=== PATIENT | male | born 1965 | race Caucasian/White ===

== ENCOUNTER 2023-05-04 09:17 | Emergency (ER) | payer BC, SELFPAY ==
[2023-05-04] VITALS (18 sets, daily range): BP systolic 101–115; BP diastolic 61–80; PULSE 52–62; RESP 16–20; TEMP 36.3–36.8; O2SAT 95–100
--- NOTE | ~2023-05-04 | CT_ITS ---
Non-contrast Head CT History: Status post fall Technique: Axial non-contrast imaging of the brain was performed. Dose reduction technique was used on this scan by utilizing automated exposure control and iterative reconstruction technique. The dose -length product (DLP) was 605.33 mGy-cm. Findings: There is no evidence of intracranial hemorrhage, mass lesion, or acute infarct. Brain par enchyma appears normal. The ventricles and subarachnoid spaces are normal in size. The calvarium ap pears normal. The visualized paranasal sinuses and mastoid air cells are clear. Impression: No significant abnormality seen. Reviewed, dictated and finalized at location . Impression: No significant abnormality seen.
--- NOTE | ~2023-05-04 | US_ITS ---
Testicular ultrasound with doppler. Indication: Left testicular pain. Technique: Real-time sonography the scrotum was performed. Color flow Doppler and Doppler spectral an alysis were performed. Findings: The testes are homogeneous in echotexture bilaterally. There is no evidence of an intrates ticular mass. There is ectasia of the right rete testis. The right testis measures 4.9 x 2.5 x 3.5 cm and the left 4.5 x 2.3 x 2.8 cm. There is color-flow seen to both testes. Arterial and venous spectr al waveforms are seen in both testes. There is no sonographic evidence of torsion. The head of the e pididymis is visualized bilaterally and is within normal limits. Impression: No significant abnormality seen. Reviewed, dictated and finalized at [facility]. Impression: No significant abnormality seen.
--- NOTE | ~2023-05-04 | CT_ITS ---
EXAMINATION: CT abdomen pelvis w con DATE: 05/04/2023 12:36 INDICATION: Inguinal hernia with pain TECHNIQUE: Computed tomography (CT) of the abdomen and pelvis was performed with 100 mL Omnipaque-350 intravenous contrast. The mA was adjusted according to patient size. Iterative reconstruction techni que was employed. The dose-length product was 522.95 mGy-cm. COMPARISON: None FINDINGS: Mild dependent atelectasis in the bilateral lower lobes. Heart size normal. No pericardial or pleural effusion. Small sliding-type hiatal hernia. A couple hyperenhancing subcapsular hepatic lesions elaine uring 1.3 cm in the left hepatic lobe and 0.8 cm in the right hepatic lobe most likely representing f lash filling hemangiomas. Gallbladder, spleen, pancreas, bilateral adrenal glands and left kidney are normal. 2 mm nonobstructing stone in the interpolar region of the right kidney. There is mild coloni c diverticulosis with a sigmoid predominance. There is no adjacent inflammatory change to suggest di verticulitis. No bowel obstruction. Normal appendix. Small fat-containing right inguinal hernia. Like ly left inguinal hernia repair and possible prior right inguinal hernia repair. No free intraperitone al gas or fluid. No pathologically enlarged abdominal or pelvic lymphadenopathy. Mild lumbar spondylo sis and mild to moderate bilateral hip osteoarthritis. IMPRESSION: 1. Small right inguinal hernia with likely prior bilateral inguinal hernia repairs. Reviewed, dictated and finalized at location [facility]. IMPRESSION: 1. Small right inguinal hernia with likely prior bilateral inguinal hernia repa irs.
--- NOTE | 2023-05-04 11:47 | PC.NURSE ---
testicular exam performed by provider with verse writer assistance
--- NOTE | 2023-05-04 11:53 | ED.ABDPAIN ---
HPI - Abdominal Pain General Chief Complaint: Abdominal Pain Stated Complaint: hernia Time Seen by Provider: 05/04/23 11:13 History of Present Illness HPI narrative: 57-year-old male reports from [facility] for evaluation of right groin pain and swelling since yesterday. Patient states he was urinating when he experienced a severely sharp pain in his right lower groin which caused him to fall to the ground. He denies losing consciousness but states he did hit his head. Patient states the pain was very sharp in nature and radiated down the anterior aspect of his right thigh. He has since had a dull ache in the R groin, states if he lays flat the bulge goes down, but if he stands up for 5-10 minutes, the bulge returns and causes pain. He has a history of 3 left inguinal hernias, he is s/p repair by Dr. Shelley at [facility]. He has no history of hernias on the R side but states this is how he presented with his left hernias. He also reports L testicular pain and intermittent swelling in his scrotum, along with intermittent burning when he pees. When asked if it feels like he pees knives, he says no. He does endorse intermittent nausea, vomiting and diarrhea. Denies fever, CP, SOB, back pain, neck pain, focal weakness, difficulty ambulating, penile discharge, concern for STD. No other injuries acquired during the fall. Related Data Allergies Allergy/AdvReac Type Severity Reaction Status Date / Time No Known Allergies Allergy Verified 05/04/23 12:02 Review of Systems Review of Systems: CONSTITUTIONAL: Denies fever, chills EYES: Denies visual changes, redness, or discharge. ENT: Denies rhinorrhea, congestion, sore throat, or otalgia. CARDIOVASCULAR: Denies chest pain, palpitations, or edema. RESPIRATORY: Denies cough or dyspnea. GASTROINTESTINAL: See HPI GENITOURINARY: See HPI SKIN: Denies rash or itching. MUSCULOSKELETAL: Denies back pain, joint pain, or myalgia. NEUROLOGIC: Denies headache, numbness, dizziness, or weakness. PSYCHIATRIC: Denies anxiety or depression. Exam Narrative: GENERAL: Well-appearing, in no acute distress. HEAD: Normocephalic EYES: PERRLA ENT: Nares clear. Mucous membranes moist. Oropharynx without tonsillar hypertrophy exudate or other lesions. NECK: Supple. CHEST: No respiratory distress. Clear to auscultation, no adventitious breath sounds. HEART: Regular rate and rhythm. No murmur heard. Normal peripheral pulses. ABDOMEN: Normal active bowel sounds. Tenderness to the R groin, no hernia appreciated. No overlying skin changes. No guarding or rigidity. L testicular tenderness, no spontaneous hernia palpated in scrotum. No tenderness or crepitus to the perineum. L indirect hernia palpated in the inguinal ring through the scrotum with coughing, no R indirect hernia appreciated. No CVA tenderness. EXTREMITIES: Normal range of motion. No edema. SKIN: Warm, dry, no rash. NEURO: No focal deficits. Alert and oriented x3. Cranial nerves II through XII intact. Strength 5/5 in BUE and BLE. Sensation intact throughout. Ambulatory without difficulty. PSYCH: Normal mood and affect. Course Vital Signs Vital signs: Vital Signs Temperature 97.3 F L 05/04/23 09:20 Pulse Rate 62 05/04/23 09:20 Respiratory Rate 20 05/04/23 09:20 Blood Pressure 114/79 05/04/23 09:20 Pulse Oximetry 100 05/04/23 09:20 Oxygen Delivery Room Air 05/04/23 09:20 Temperature 98.3 F 05/04/23 10:15 Pulse Rate 52 L 05/04/23 14:02 Respiratory Rate 16 05/04/23 14:02 Blood Pressure 104/68 05/04/23 14:02 Pulse Oximetry 97 05/04/23 14:02 Oxygen Delivery Room Air 05/04/23 09:20 MDM - Abdominal Pain MDM Narrative Medical decision making narrative: 57-year-old male reports from [facility] for evaluation of right groin pain and swelling since yesterday, concerning for strangulated or incarcerated hernia, and dysuria x1 week. Vital stable, he is afebrile. On exam, there is tenderness to the right inguina
[2023-05-04 12:04] LABS: Basophils Absolute Auto 0.1 K/mm3 (0.0-0.1); Basophils Percent Auto 0.8 % (0.2-1.2); Eosinophils Absolute Auto 0.2 K/mm3 (0-0.3); Eosinophils Percent Auto 3.7 % (0-4.4); Hematocrit 48.4 % (42.0-52.0); Hemoglobin 16.5 g/dL (14.0-18.0); Immature Granulocyte Absolute 0.02 K/mm3 (0.00-0.031); Immature Granulocyte Percent A 0.3 % (0-0.5); Lymphocytes Absolute Auto 1.69 K/mm3 (0.9-3.2); Lymphocytes Percent Auto 26.9 % (18.3-44.2); Mean Corpuscular HGB Conc 34.1 g/dl (32-36); Mean Corpuscular Volume 90.8 fl (80-100); Mean Platelet Volume 8.9 fl (7.4-10.4); Monocytes Absolute Auto 0.6 K/mm3 (0.1-0.6); Monocytes Percent Auto 9.2 % (2.6-8.5); Neutrophils Absolute Auto 3.7 K/mm3 (1.3-6.7); Neutrophils Percent Auto 59.1 % (45.5-73.1); Platelet Count Result 254 k/mm3 (150-375); Red Blood Count 5.33 M/mm3 (4.6-6.20); Red Cell Distribution Width 12.7 % (11.5-14.5); White Blood Count 6.3 K/mm3 (4.5-10.0)
[2023-05-04 12:11] LABS: Appearance Urine Clear (Clear); Bilirubin Urine Negative (Negative); Blood Urine Negative (Negative); Color Urine Yellow (Yellow); Glucose Urine UA Negative (Negative); Ketones Urine Negative (Negative); Leukocyte Esterase Ur Negative LEU/UL (Negative); Nitrate Urine Negative (Negative); Protein Urine Negative (Negative); Specific Grav Ur 1.019 (1.001-1.035); pH Urine 7.5 (5.0-9.0)
[2023-05-04 12:15] LABS: Alanine Aminotransferase 43 U/L (6-50); Albumin Level 3.7 g/dL (3.5-5.1); Alkaline Phosphatase 81 U/L (38-126); Anion Gap 1 mmol/L (8-16); Aspartate Amino Transferase 37 U/L (17-59); Bilirubin,Total 0.3 mg/dL (0.2-1.3); Blood Urea Nitrogen 12 mg/dL (9-20); Calcium 8.4 mg/dL (8.4-10.2); Carbon Dioxide 30 mmol/L (22-30); Chloride 106 mmol/L (98-107); Estimated CRCL calculation 92 ml/min; Estimated Glomerular Filt Rate > 60; Glucose 90 mg/dL (65-110); Lipase 125 U/L (23-300); Potassium 4.5 mmol/L (3.4-5.0); Sodium 137 mmol/L (137-145)
[2023-05-04 12:17] LABS: Add Urine Microscopic? NO
[2023-05-04 12:17] LABS: Lactic Acid Reflex 0.9 mmol/L (0.7-2.0)
[2023-05-04] MEDS: ONDANSETRON INJ 4 MG/2 ML VIAL IV PUSH (12:21)
[2023-05-04] MEDS: ACETAMINOPHEN 500 MG TABLET 1000 MG PO (12:21)
[2023-05-04] MEDS: SODIUM CHLORIDE 0.9% IV 1,000 ML 999 ML IV CONT (12:22)
[2023-05-04] MEDS: Please add drug allergy info to patient profile. 1 EACH XX (12:24)
== END 2023-05-04 14:03 ==
PROVIDERS: Emergency Provider Physician Assistant
DX: K40.90 Unilateral inguinal hernia, without obstruction or gangrene, not specified as recurrent (principal); N45.2 Orchitis
CPT/HCPCS: 36415; 70450; 74177; 76870; 80053; 81003; 83605; 83690; 85025; 93976; 96361; 96374; 99284; A9270; J2405; J7030; Q9967

== ENCOUNTER 2024-03-11 17:52 | Emergency (ER) | payer BC, SELFPAY ==
--- NOTE | ~2024-03-11 | XR_ITS ---
EXAMINATION: XR chest 1V portable Exam Date/Time: 03/11/2024 19:30 CDT HISTORY: chest pain Comparison: None. RESULT: Lines, tubes, and devices: None. Lungs and pleura: Slight rightward rotation. Lordotic positioning. No focal consolidation, pleural e ffusion, or pneumothorax. Cardiomediastinal silhouette: Stable. Other: No acute osseous or upper abdominal finding. IMPRESSION: No acute cardiopulmonary process. Reviewed, dictated and finalized at location [facility].
--- NOTE | ~2024-03-11 | CT_ITS ---
EXAMINATION: CT chest abdomen pelvis w con DATE: 03/11/2024 20:25 INDICATION: abdominal pain, possible Arctic aneurysm . TECHNIQUE: Computed tomography (CT) of the chest, abdomen, and pelvis was performed with 100 mL Omnip aque-350 intravenous contrast. Automated exposure control and iterative reconstruction technique were employed. The dose-length product was 857.73 mGy-cm. COMPARISON: X-ray chest, same date; CT abdomen pelvis 05/04/2023 FINDINGS: CHEST: Thoracic aorta: No significant dilation. No dissection. Lung parenchyma and airways: Lungs and airways are clear. Thoracic inlet, axillae and chest wall: No thyroid or soft tissue mass. No axillary lymphadenopathy. Mediastinum: No mass or lymphadenopathy. Heart and pericardium: Normal heart size. No pericardial effusion. Coronary artery calcifications: Mild. Pleura: No effusion or mass. Thoracic bones: No acute osseous finding in the chest. ABDOMEN/PELVIS: Liver: Enhancing subcapsular foci, likely hemangiomas, stable Biliary/Gallbladder: Partially contracted gallbladder. Gallstone in the gallbladder neck. No inflamma tory changes. No bile duct dilation. Pancreas: No mass or duct dilation. Spleen: 15 mm hyperdense splenic lesion likely hemangioma, stable. Adrenals:No mass. Kidneys: No suspicious mass, obstructing stone, or hydronephrosis. 3 mm nonobstructing right midpole calcification. GI tract: Mild distal esophageal and gastric wall edema. No small or large bowel dilation. Normal paty endix. Diverticulosis without diverticulitis. Mesentery/Peritoneum: No ascites, mass, or free air. Retroperitoneum: No mass Pelvis: Mild urinary bladder wall thickening. Mild prostatomegaly. Soft Tissues: Small uncomplicated fat-containing umbilical and bilateral inguinal hernias. Status pos t left inguinal hernia repair. Abdominopelvic bones: No acute osseous finding in the abdomen/pelvis. IMPRESSION: Mild esophagitis/gastritis. Otherwise, no acute process detected in the chest, abdomen, or pelvis. Reviewed, dictated and finalized at location [facility].
[2024-03-11 17:55] VITALS: BP 148/85; PULSE 80; RESP 16; O2SAT 98
--- NOTE | 2024-03-11 18:56 | ECG_ITS ---
SEE SCANNED COPY FOR CONFIRMED REPORT MTDD
[2024-03-11 19:01] VITALS: BP 133/78; PULSE 75; RESP 18; O2SAT 95
--- NOTE | 2024-03-11 19:07 | ED.ABDPAIN ---
HPI - Abdominal Pain General Chief Complaint: Abdominal Pain Stated Complaint: abd pain Time Seen by Provider: 03/11/24 19:07 Source: patient and EMS Limitations: no limitations History of Present Illness HPI narrative: 4 years old white male came from cocaine rehab complaining of abdominal pain and chest pain for the last few weeks. Patient was examined by 1 of the physician over there yesterday and was told that he have probably abdominal aortic aneurysm. patient was admitted to cocaine rehab 5 weeks ago. Been having intermittent abdominal pain for the last 2 months, denies aggravating or relieving factors. Also been having intermittent chest pain for the last 2 weeks. History of psych disorder, allergy he does not smoke cigarettes or drink alcohol or uses drugs. Last cocaine use was 5 weeks ago. Related Data Allergies Allergy/AdvReac Type Severity Reaction Status Date / Time No Known Allergies Allergy Verified 05/04/23 12:02 Review of Systems Review of Systems: All systems reviewed & are unremarkable except as noted in HPI and below Exam Narrative: General appearance: Well-developed, well-nourished Skin: Normal color Head: Normocephalic, nontraumatic Eyes: Clear conjunctiva ENT: Oropharynx normal, ears normal, nose normal Neck: Supple, nontender Chest and respiratory: Airway patent, no respiratory distress, no accessory muscle use Heart: Regular rate/rhythm Abdomen: Soft, Mild diffuse abdominal tenderness, no organomegaly, quiet bowel sounds Vascular: Normal peripheral pulses, normal capillary refill. Musculoskeletal: Normal range of motion, nontender back Neurologic: Alert and oriented ?3, A R COLLECTIONS REP is normal as tested, no gross motor deficit Course Vital Signs Vital signs: Vital Signs Pulse Rate 80 03/11/24 17:55 Respiratory Rate 16 03/11/24 17:55 Blood Pressure 148/85 H 03/11/24 17:55 Pulse Oximetry 98 03/11/24 17:55 Oxygen Delivery Room Air 03/11/24 17:55 Pulse Rate 75 03/11/24 19:01 Respiratory Rate 18 03/11/24 19:01 Blood Pressure 133/78 03/11/24 19:01 Pulse Oximetry 95 03/11/24 19:01 Oxygen Delivery Room Air 03/11/24 19:01 MDM - Abdominal Pain MDM Narrative Medical decision making narrative: PATIENT PRESENTS WITH INTERMITTENT CHEST PAIN AND INTERMITTENT ABDOMINAL PAIN FOR WEEKS, WAS TOLD BY THE COCAINE REHAB PHYSICIAN THAT HE HAVE AORTIC ANEURYSM. PHYSICAL EXAMINATION SHOWED SLIGHT DIFFUSE TENDERNESS OF THE EPIGASTRIC AREA, DIFFERENTIAL DIAGNOSIS GASTRITIS, ESOPHAGITIS, PANCREATITIS, HEPATITIS, CONSTIPATION, COLITIS BLOOD WORKUP SHOWED NO SIGNIFICANT ABNORMALITY TO EXPLAIN PATIENT CONDITION CT CHEST ABDOMEN AND PELVIS WITH IV CONTRAST SHOWED NO SIGNIFICANT ABNORMALITIES, POSSIBLE ESOPHAGITIS. PATIENT HAVE HISTORY OF PSYCH DISORDER, BEEN OF COCAINE FOR THE LAST 5 WEEKS WHICH COULD BE THE UNDERLYING CAUSE OF HIS INTERMITTENT CHEST AND ABDOMINAL PAIN. Differential Diagnosis Differential diagnosis: Likely other ( ABOVE) Medical Records Attestation: I reviewed the patient's medical records. Lab Data Attestation: I reviewed the patient's lab results. 03/11/24 19:05 03/11/24 19:05 Labs: Lab Results 03/11/24 03/11/24 Range/Units 19:05 19:20 WBC 6.6 (4.5-10.0) K/mm3 RBC 5.19 (4.6-6.20) M/mm3 Hgb 15.7 (14.0-18.0) g/dL Hct 45.6 (42.0-52.0) % MCV 87.9 (80-100) fl MCH 30.3 (26-34) pg MCHC 34.4 (32-36) g/dl RDW 12.5 (11.5-14.5) % Plt Count 238 (150-375) k/mm3 MPV 8.8 (7.4-10.4) fl Immature Gran % (Auto) 0.3 (0-0.5) % Neut % (Auto) 50.7 (45.5-73.1) % Lymph % (Auto) 30.2 (18.3-44.2) % [place] %
[2024-03-11 19:12] LABS: Basophils Absolute Auto 0.1 K/mm3 (0.0-0.1); Basophils Percent Auto 1.2 % (0.2-1.2); Eosinophils Absolute Auto 0.3 K/mm3 (0-0.3); Eosinophils Percent Auto 4.7 % (0-4.4); Hematocrit 45.6 % (42.0-52.0); Hemoglobin 15.7 g/dL (14.0-18.0); Immature Granulocyte Absolute 0.02 K/mm3 (0.00-0.031); Immature Granulocyte Percent A 0.3 % (0-0.5); Lymphocytes Absolute Auto 1.99 K/mm3 (0.9-3.2); Lymphocytes Percent Auto 30.2 % (18.3-44.2); Mean Corpuscular HGB Conc 34.4 g/dl (32-36); Mean Corpuscular Hemoglobin 30.3 pg (26-34); Mean Corpuscular Volume 87.9 fl (80-100); Mean Platelet Volume 8.8 fl (7.4-10.4); Monocytes Absolute Auto 0.9 K/mm3 (0.1-0.6); Monocytes Percent Auto 12.9 % (2.6-8.5); Neutrophils Absolute Auto 3.4 K/mm3 (1.3-6.7); Neutrophils Percent Auto 50.7 % (45.5-73.1); Platelet Count Result 238 k/mm3 (150-375); Red Blood Count 5.19 M/mm3 (4.6-6.20); Red Cell Distribution Width 12.5 % (11.5-14.5); White Blood Count 6.6 K/mm3 (4.5-10.0)
[2024-03-11 19:22] LABS: INR 0.9; Prothrombin Time 12.7 Seconds (11.1-14.7)
[2024-03-11 19:23] LABS: Alanine Aminotransferase 57 U/L (6-50); Albumin Level 4.2 g/dL (3.5-5.1); Alkaline Phosphatase 83 U/L (38-126); Anion Gap 5 mmol/L (4-12); Aspartate Amino Transferase 40 U/L (17-59); Bilirubin,Total 0.5 mg/dL (0.2-1.3); Blood Urea Nitrogen 21 mg/dL (9-20); Calcium 9.5 mg/dL (8.4-10.2); Carbon Dioxide 30 mmol/L (22-30); Chloride 103 mmol/L (98-107); Estimated CRCL calculation 81 ml/min; Estimated Glomerular Filt Rate > 60; Glucose 98 mg/dL (65-110); Lipase 145 U/L (23-300); Potassium 4.3 mmol/L (3.4-5.0); Sodium 138 mmol/L (137-145)
[2024-03-11 19:31] LABS: Appearance Urine Clear (Clear); Bacteria Urine None Seen /hpf; Bilirubin Urine Negative (Negative); Blood Urine Negative (Negative); Color Urine Yellow (Yellow); Glucose Urine UA Negative (Negative); Ketones Urine Negative (Negative); Leukocyte Esterase Ur Trace LEU/UL (Negative); Nitrate Urine Negative (Negative); Non Pathogenic Casts 0-2; Protein Urine Negative (Negative); RBC Urine 0-2 /hpf (0-2); Specific Grav Ur 1.019 (1.001-1.035); Squamous Epithelial Cell Urine None Seen /hpf (Few); WBC Urine 0-5 /hpf (0-3)
[2024-03-11 19:34] LABS: Troponin I < 0.012 ng/mL (0.000-0.034)
[2024-03-11 19:34] LABS: Add Urine Microscopic? YES
[2024-03-11 19:47] VITALS: BP 122/73; PULSE 68; RESP 17; O2SAT 95
[2024-03-11] MEDS: SODIUM CHLORIDE 0.9% IV 1,000 ML 999 ML IV CONT (19:56)
[2024-03-11] MEDS: PANTOPRAZOLE 40 MG TABLET PO (21:52)
[2024-03-11 21:55] VITALS: BP 133/90; PULSE 68; RESP 18; O2SAT 98
== END 2024-03-11 22:08 | disposition home or self-care (01) ==
PROVIDERS: Emergency Provider Emergency Medicine; PCP Internal Medicine
DX: R10.9 Unspecified abdominal pain (principal); F14.90 Cocaine use, unspecified, uncomplicated; K20.90 Esophagitis, unspecified without bleeding; K29.70 Gastritis, unspecified, without bleeding
CPT/HCPCS: 36415; 71045; 71260; 74177; 80053; 81001; 83690; 84484; 85025; 85610; 93005; 96360; 99284; A9270; J7030; Q9967